=== PATIENT | male | born 1965 | race Hispanic/Latino ===

== ENCOUNTER 2016-12-06 10:57 | Emergency (ER) | payer SELFPAY ==
[2016-12-06] MEDS ORDERED: HYDROmorphone HCL 1 MG/ML SYR ONE (12:16)
[2016-12-06] MEDS ORDERED: ONDANSETRON HCL 4 MG/2 ML VIAL ONE (12:16)
[2016-12-06 12:20] LABS: A/G RATIO 1.2; ALBUMIN 3.8 g/dL (3.5-5.0); ALKALINE PHOSPHATASE 77 U/L (38-126); ALT 35 U/L (21-72); AST 14 U/L (17-59); BILIRUBIN, TOTAL 0.9 mg/dL (0.2-1.3); BLOOD UREA NITROGEN 25 mg/dL (9-20); CHLORIDE 108 mmol/L (98-107); CREATININE 1.4 mg/dL (0.7-1.3); EST GLOMERULAR FILTRATION RATE 56 mL/min; GLUCOSE 119 mg/dL (70-100); LIPASE 55 U/L (23-300); SODIUM 144 mmol/L (137-145)
[2016-12-06 12:50] LABS: HEMATOCRIT 38.7 % (42.0-54.0); HEMOGLOBIN 12.9 g/dL (14.0-18.0); MEAN CELL VOLUME 78.9 fL (80.0-100.0); MEAN CORPUS. HGB CONCENTRATION 33.3 g/dL (32.0-36.0); MEAN CORPUSCULAR HEMOGLOBIN 26.2 pg (29.0-35.0); MEAN PLATELET VOLUME 8.6 fL (7.4-10.4); PLATELET COUNT 237 X 10^3uL (130-440); RED CELL DISTRIBUTION WIDTH 17.5 % (11.5-14.5); WHITE BLOOD COUNT 8.4 X 10^3uL (3.9-10.7)
[2016-12-06 12:51] LABS: BAND% (Manual) 2 % (0.0-1.0); EOSINOPHIL % (Manual) 1 % (0.0-6.0); LYMPHOCYTE % (Manual) 10 % (20.0-40.0); MONOCYTE % (Manual) 8 % (2.0-10.0); NEUTROPHIL % (Manual) 79 % (54.0-75.0); PLATELET ESTIMATE ADEQUATE
[2016-12-06 12:52] LABS: OVALOCYTES PRESENT
--- NOTE | 2016-12-06 13:26 | CT REPORT ---
HISTORY: Left-sided pain around the feeding tube COMPARISON: None. TECHNIQUE: This examination was performed using automated exposure control, adjustment of mA or kV according to patient size, and/or use of iterative reconstruction technique. Multiple contiguous axial images were obtained from the lung bases through the pubic symphysis following administration of intravenous con trast. 100cc Isovue 300 contrast. FINDINGS: Left-sided gastrostomy tube is noted its position is unremarkable. There is no fatty stranding or flu id around its insertion site. The subcutaneous tissues appear normal. Moderate left and mild right basilar atelectasis is noted. There is significant cardiomegaly and a ti ny pericardial effusion. Abdomen/pelvis: The liver is normal in appearance without a mass or evidence of intrahepatic ductal d ilatation. The gallbladder is unremarkable, there is no cholelithiasis or pericholecystic fluid. Th e spleen is normal in appearance. There is no pancreatic mass or ductal dilatation. The adrenal glands are unremarkable. A tiny, 1 mm nonobstructing stone in the mid right kidney is evident. No hydronephrosis. A small exophytic hypode nsity, likely a cyst noted in the mid left kidney. The bowel is unremarkable given the lack of contrast. No obstruction. No wall thickening. No free fluid or free air. There has been a hernia repair in the umbilical region. Superior to the repair there is a tiny hernia containing only fat. There is no mesenteric edema or inflammatory process. Vascular structures of the abdomen and pelvis are unremarkable. No pathologic adenopathy is identified. The bladder appears normal. There is norm al alignment to the lower thoracic and lumbar spine. IMPRESSION: Gastrostomy tube is unremarkable in its position and appearance. No fatty stranding around its insert ion site. No fluid collection or evidence of infection. Tiny nonobstructing right kidney stone. Significant cardiomegaly with a tiny pericardial effusion. Moderate left and mild right basilar atelectasis Final Electronic Signature: This report was electronically signed by Chato Mendieta MD on 12/06/2016 1: 24 PM. deanna /
--- NOTE | 2016-12-06 14:34 | ER PHYSICIAN DOCUMENTATION ---
Physician Documentation [facility] Name:Sean Oliveira Age:51 yrs Sex:Male :1965 Arrival Date:12/06/2016 Time:10:57 Bed3 Private MD: Tres Sweeney Disposition: 12/06 15:00 Chart complete. tl1 Disposition: 12/06/16 14:02 Discharged to Home/Self Care. Impression: Abdominal Pain, Unspecified. - Condition is Good. - Discharge Instructions: Abdomen - ABDOMINAL PAIN, Unkown Cause, (Male). - Prescriptions for [place] 5- 325 mg Oral Tablet - take 1 tablet by ORAL route every 6 hours As needed; 20 tablet. Zofran 4 mg Oral Tablet - take 1-2 tablet by ORAL route every 4-6 hours As needed; 10 tablet. - Medical Reconciliation form form. - Follow up: Jass Nickerson MD; When: 4- 6 days; Reason: Recheck today's complaints, Continuance of care. - Problem is new. - Symptoms have improved. HPI: 11:18 This 51 yrs old Male presents to ER via Private Vehicle with complaints of tl1 Nausea, Abdominal Pain. 11:20 He has had mild, slowly progressive discomfort around his PEG tube for the last 10-14 tl1 days. Yesterday he had 3 episodes of diarrhea, and vomited once. Since about 8 AM, the pain around his PEG tube is worse and he has noticed some d/c, which he cannot accurately describe, that he thinks might be pus. He has had no f/c/s. No melena, hematochezia or hematemesis. No bleeding from the site or any redness or swelling.. Historical: - Allergies: Lisinopril; Lantus; - Home Meds: 1. Pulmicort 0.5 mg/2 mL inhalation nbsp 2 mL 2 times per day 2. Combivent Inhl 3. metoprolol tartrate 25 mg oral tab 2 times per day 4. Hytrin Oral 5. hydralazine 50 mg oral tab 1 tab TID 6. Coreg 6.25 mg oral tab 1 tab 2 times per day 7. isosorbide mononitrate 30 mg oral Tb24 1 tab once daily 8. Humalog 100 unit/mL subcutaneous soln 9. levothyroxine 150 mcg oral cap 1 cap once daily 10. Advair Diskus 250-50 mcg/dose inhalation dsdv 1 puff 2 times per day 11. Lasix 80 mg oral tab 1 tab once daily 12. oxygen @3 L/NC 13. Lantus 100 unit/mL subcutaneous soln 30 units QHS nightly 14. oxycodone 5 mg oral tab 1 tab as needed 15. aspirin 81 mg oral tab 1 tab once daily 16. atorvastatin 80 mg oral tab 1 tab at bedtime 17. 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 Hospitalized for 4 months, coma x 3 weeks. ; PEG tube; - Tetanus: < 10 years. - Ebola Screening: : Patient negative for fever greater than or equal to 101.5 degrees Fahrenheit, and additional compatible Ebola Virus Disease symptoms. Patient denies exposure to infectious person. Patient denies travel to an Ebola-affected area in the 21 days before illness onset. No symptoms or risks identified at this time. . - Immunization history: Unable to Obtain. - Social history: Smoking status: Patient states was never smoker of tobacco. Patient uses marijuana. ROS: 11:20 Abdomen/GI: Positive for abdominal pain, nausea, vomiting, diarrhea, abdominal cramps, tl1 Negative for abdominal distension, black/tarry stool, rectal bleeding, bowel incontinence. 11:20 All other systems are negative. Exam: 11:20 Head/Face: Normocephalic, atraumatic. tl1 Eyes: Pupils equal round and reactive to light, extra-ocular motions intact. Lids and lashes normal. Conjunctiva and sclera are non-icteric and not injected. Cornea within normal limits. Periorbital areas with no swelling, redness, or edema. 11:20 ENT: Nares patent. No nasal discharge, no septal abnormalities noted. Tympanic tl1 membranes are normal and external auditory canals are clear. Oropharynx with no redness, swelling, or masses, exudates, or evidence of obstruction, uvula midline. Mucous membranes moist. 11:20 Constitutional: The patient appears alert, awake, non-diaphoretic, non-toxic, well developed, well hydrated, well groomed, well nourished, obese, uncomfortable. 11:20 Cardiovascular: Rate: normal, Rhythm: regular, Heart sounds: normal. 11:20 Respiratory: Respirations: normal, Breath sounds: are normal. 11:20 Abdomen/GI: Inspection: abdomen appears normal, Bowel sounds: active, Palpation: soft, mild abdominal tenderness, in the left upper quadrant, rebound tenderness, is not appreciated, voluntary guarding, is not appreciated, involuntary guarding, is not appreciated, no appreciated organomegaly. 11:20 : CVA tenderness, is absent. 11:20 Skin: Exam negative for acute changes. Vital Signs: 11:05 BP 127 / 90; Pulse 78; Resp 20; Temp 98.5; Pulse Ox 98% on 4 lpm NC; Pain 8/10; rs 11:30 BP 172 / 100; Pulse 73; Resp 20; Pulse Ox 96% on 4 lpm NC; Pain 7/10; rs 12:00 BP 163 / 91; Pulse 74; Resp 20; Pulse Ox 97% on 4 lpm NC; Pain 7/10; rs 12:15 BP 173 / 108; Pulse 72; Resp 22; Pulse Ox 95% on 4 lpm NC; Pain 6/10; rs 12:30 BP 168 / 105; Pulse 71; Resp 20; Pulse Ox 97% on 4 lpm NC; Pain 5/10; rs 13:30 BP 143 / 89; Pulse 76; Resp 20; Pulse Ox 99% on 4 lpm NC; Pain 3/10; rs 14:00 BP 144 / 87; Pulse 69; Resp 20; Pulse Ox 99% on 4 lpm NC; Pain 3/10; rs MDM: 11:18 Patient medically screened. tl1 14:00 Differential diagnosis: gastritis, pancreatitis, appendicitis, diverticulitis, tl1 gastroenteritis, abscess, abdominal wall infection. Data reviewed: vital signs, nurses notes, old medical records, lab test result(s), EKG, radiologic studies, and as a result, I will discharge patient. Test interpretation: by ED physician or midlevel provider: not applicable. Counseling: I had a detailed discussion with the patient and/or guardian regarding: the historical points, exam findings, and any diagnostic results supporting the discharge/admit diagnosis, lab results, radiology results, the need for outpatient follow up, for a recheck, as scheduled 3 days from now on Friday, 12/09, with Dr Nickerson , to get your PEG tube removed. to return to the emergency department if symptoms worsen or persist or if there are any questions or concerns that arise at home. Medication response: The patient's symptoms have improved. Response to treatment: the patient's symptoms have mildly improved after treatment, and as a result, I will discharge patient. ED course: pain mostly resolved in the ED with very mild TTP on exam, around the PEG tube. No purulence, redness, induration.. 12/06 12:40 Order name: COMPREHENSIVE METABOLIC PANEL; Complete Time: 13:51 EDMS 12/06 12:40 Order name: LIPASE; Complete Time: 13:51 EDMS 12/06 12:51 Order name: CBC WITHOUT A DIFFERENTIAL; Complete Time: 13:51 EDMS 12/06 12:53 Order name: MANUAL DIFFERENTIAL; Complete Time: 13:51 EDMS 12/06 13:02 Order name: CAT SCAN; ABD/PEL W 23968; Complete Time: 13:51 EDMS 12/07 01:17 Interpretation: No apparent cause for his abdominal pain. tiny non obstructing kidney tl1 stone on the right. 12/06 12:19 Order name: Oxygen: wears oxygen at home at 3 L per min per nc.; Complete Time: 12:20 rs Dispensed Medications: 12:08 Drug: NS 0.9% 1000 ml; Volume: 1000 ml; Route: IV; Rate: bolus; Site: left antecubital; rs Delivery: [place] Tubing; 12:08 Drug: Zofran 4 mg; Route: IVP; Rate: 2 mg/min; Infused Over: 2 mins; Site: left rs antecubital; 12:53 Follow up: Response: No adverse reaction; Nausea is decreased rs 12:10 Drug: Dilaudid 1 mg; Route: IVP; Rate: 0.25 mg/min; Infused Over: 4 mins; Site: left rs antecubital; 12:52 Follow up: Response: No adverse reaction; Pain is decreased rs Signatures: Shavon Garcia RN RN rs Ivette, Tres, MD MD tl1
--- NOTE | 2016-12-06 14:34 | ER NURSING DOCUMENTATION ---
Nurse's Notes [facility] Name:Sean Oliveira Age:51 yrs Sex:Male :1965 Arrival Date:12/06/2016 Time:10:57 Bed3 Private MD: Diagnosis:Abdominal Pain, Unspecified Presentation: 12/06 11:10 Presenting complaint: Patient states: Abd pain in the area of his PEG. N/V/D x 1 day. rs No f/c. Transition of care: Home. 11:10 Acuity: ALBARO 2 rs 11:10 Method Of Arrival: Private Vehicle rs Triage Assessment: 11:08 General: Appears uncomfortable, Behavior is anxious, cooperative, pleasant. Pain: rs Complains of pain in abd LUQ in the area of his PEG. Pain does not radiate. Pain currently is 8 out of 10 on a pain scale. Quality of pain is described as sharp, stabbing, Pain began Started several weeks ago and is getting worse. Saw Dr Saunders who referred him to Dr Nickerson for removal of PEG which is scheduled for Friday December 09, 2016. States he cannot wait, that the pain has gotten too bad. Original surgery was in [place] last May. Neuro: No deficits noted. Level of Consciousness is awake, alert, Oriented to person, place, time, event. Cardiovascular: No deficits noted. Capillary refill < 3 seconds Pulses are 3+ in right radial artery. Respiratory: No deficits noted. Respiratory effort is even, unlabored, Respiratory pattern is regular, symmetrical, Breath sounds are clear Reports short of breath since moving to [place]. Wears oxygen at 3 L nc. GI: Abdomen is obese, Bowel sounds present X 4 quads. Abdomen is tender to palpation in left upper quadrant. GI: Reports diarrhea, nausea, vomiting. Derm: Skin is pink, warm & dry. Historical: - Allergies: Lisinopril; Lantus; - Home Meds: 1. Pulmicort 0.5 mg/2 mL inhalation nbsp 2 mL 2 times per day 2. Combivent Inhl 3. metoprolol tartrate 25 mg oral tab 2 times per day 4. Hytrin Oral 5. hydralazine 50 mg oral tab 1 tab TID 6. Coreg 6.25 mg oral tab 1 tab 2 times per day 7. isosorbide mononitrate 30 mg oral Tb24 1 tab once daily 8. Humalog 100 unit/mL subcutaneous soln 9. levothyroxine 150 mcg oral cap 1 cap once daily 10. Advair Diskus 250-50 mcg/dose inhalation dsdv 1 puff 2 times per day 11. Lasix 80 mg oral tab 1 tab once daily 12. oxygen @3 L/NC 13. Lantus 100 unit/mL subcutaneous soln 30 units QHS nightly 14. oxycodone 5 mg oral tab 1 tab as needed 15. aspirin 81 mg oral tab 1 tab once daily 16. atorvastatin 80 mg oral tab 1 tab at bedtime 17. 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 Hospitalized for 4 months, coma x 3 weeks. ; PEG tube; - Tetanus: < 10 years. - Ebola Screening: : Patient negative for fever greater than or equal to 101.5 degrees Fahrenheit, and additional compatible Ebola Virus Disease symptoms. Patient denies exposure to infectious person. Patient denies travel to an Ebola-affected area in the 21 days before illness onset. No symptoms or risks identified at this time. . - Immunization history: Unable to Obtain. - Social history: Smoking status: Patient states was never smoker of tobacco. Patient uses marijuana. Screenin:42 Infectious Disease Risk None. Abuse screen: Denies threats or abuse. Nutritional rs screening: No deficits noted. Assessment: 11:10 See Triage Assessment done by same RN. rs Vital Signs: 11:05 BP 127 / 90; Pulse 78; Resp 20; Temp 98.5; Pulse Ox 98% on 4 lpm NC; Pain 8/10; rs 11:30 BP 172 / 100; Pulse 73; Resp 20; Pulse Ox 96% on 4 lpm NC; Pain 7/10; rs 12:00 BP 163 / 91; Pulse 74; Resp 20; Pulse Ox 97% on 4 lpm NC; Pain 7/10; rs 12:15 BP 173 / 108; Pulse 72; Resp 22; Pulse Ox 95% on 4 lpm NC; Pain 6/10; rs 12:30 BP 168 / 105; Pulse 71; Resp 20; Pulse Ox 97% on 4 lpm NC; Pain 5/10; rs 13:30 BP 143 / 89; Pulse 76; Resp 20; Pulse Ox 99% on 4 lpm NC; Pain 3/10; rs 14:00 BP 144 / 87; Pulse 69; Resp 20; Pulse Ox 99% on 4 lpm NC; Pain 3/10; rs ED Course: 10:58 Patient arrived in ED. lm3 11:10 Shavon Garcia, RN is Primary Nurse. rs 11:10 Notified ED Physician of patient's arrival and chief complaint. Dr. Steele notified. Arm rs band placed on Bed in low position Call Light in Reach Gowned HOB Elevated Side rails up x1. 11:11 Triage completed. rs 11:15 Door closed. Noise minimized. Lights dimmed. Verbal reassurance given. Diet: Patient is rs NPO. 11:18 Tres Steele MD is Attending Physician. tl1 11:30 Inserted saline lock: 20 gauge in right antecubital area and blood collected. rs 12:43 Pulse Ox - RN Monitoring Only NIBP On - RN Monitoring Only. rs 12:44 Resting quietly. rs 12:[address] hz 13:02 CAT SCAN; ABD/PEL W 22653 In Process Unspecified. EDMS 13:08 Patient moved back from [address]. shan 13:15 CAT SCAN; ABD/PEL W [id number] Sent. shan 14:00 Jass Nickerson MD is Referral Physician. tl1 14:15 Valuables Remains with patient. rs 14:18 Discontinued intact, bleeding controlled, pressure dressing applied, No rs redness/swelling at site. Administered Medications: 12:08 Drug: NS 0.9% 1000 ml; Volume: 1000 ml; Route: IV; Rate: bolus; Site: left antecubital; rs Delivery: [place] Tubing; 12:08 Drug: Zofran 4 mg; Route: IVP; Rate: 2 mg/min; Infused Over: 2 mins; Site: left rs antecubital; 12:53 Follow up: Response: No adverse reaction; Nausea is decreased rs 12:10 Drug: Dilaudid 1 mg; Route: IVP; Rate: 0.25 mg/min; Infused Over: 4 mins; Site: left rs antecubital; 12:52 Follow up: Response: No adverse reaction; Pain is decreased rs Outcome: 14:02 Discharge ordered by . tl1 14:30 Discharged to home ambulatory, with family. rs 14:30 Condition: improved 14:30 Discharge instructions given to patient, Instructed on discharge instructions, follow up and referral plans. Demonstrated understanding of instructions. 14:30 IV D/Wilfredo 14:33 Patient left the ED. rs Signatures: Dispatcher [employer] Shavon Lovett RN RN Barbie Donohue Tom, MD MD tl1 Nereyda Pineda Lisa lm3
== END 2016-12-06 14:34 | disposition home or self-care (01) ==
LOC: ER 10:57
DX: R10.12 Left upper quadrant pain (principal); K94.29 Other complications of gastrostomy; R11.2 Nausea with vomiting, unspecified; R19.7 Diarrhea, unspecified; Z93.1 Gastrostomy status; N20.0 Calculus of kidney; Z85.850 Personal history of malignant neoplasm of thyroid; Z85.9 Personal history of malignant neoplasm, unspecified; J44.9 Chronic obstructive pulmonary disease, unspecified; E10.9 Type 1 diabetes mellitus without complications; E66.01 Morbid (severe) obesity due to excess calories; Z79.899 Other long term (current) drug therapy; Z79.82 Long term (current) use of aspirin; Z99.81 Dependence on supplemental oxygen
CPT/HCPCS: 74177; 80053; 83690; 85007; 85027; 96374; 96375; 99284; J1170; J2405

== ENCOUNTER 2017-01-25 02:37 | Emergency (ER) | payer MEDICARE ==
[2017-01-25] MEDS ORDERED: NITROGLYCERIN 0.4 MG TAB.SUBL SUBLINGUAL ONE (02:56)
[2017-01-25] MEDS ORDERED: NITROGLYCERIN OINT 1 GM PACKET ONE (02:57)
[2017-01-25] MEDS ORDERED: MORPHINE SULFATE 2 MG/ML SYR ONE ×2 (02:57→03:12)
[2017-01-25 02:58] LABS: BASOPHIL# 0.1 X 10^3uL (0.0-0.1); BASOPHILS 0.7 % (0.0-2.0); EOSINOPHILS 2.2 % (0.0-6.0); EOSINOPHILS# 0.2 X 10^3uL (0.0-0.4); HEMATOCRIT 42.1 % (42.0-54.0); HEMOGLOBIN 13.9 g/dL (14.0-18.0); LYMPHOCYTES 14.4 % (20.0-40.0); LYMPHOCYTES# 1.2 X 10^3uL (0.8-3.8); MEAN CELL VOLUME 81.1 fL (80.0-100.0); MEAN CORPUS. HGB CONCENTRATION 33.1 g/dL (32.0-36.0); MEAN CORPUSCULAR HEMOGLOBIN 26.8 pg (29.0-35.0); MEAN PLATELET VOLUME 9.3 fL (7.4-10.4); MONOCYTES 5.2 % (2.0-10.0); MONOCYTES# 0.4 X 10^3uL (0.2-1.0); NEUTROPHILS# 6.5 X 10^3uL (2.6-6.7); RED BLOOD COUNT 5.19 X 10^6uL (4.20-6.10); RED CELL DISTRIBUTION WIDTH 14.8 % (11.5-14.5); WHITE BLOOD COUNT 8.4 X 10^3uL (3.9-10.7)
[2017-01-25 03:04] LABS: CALCIUM 9.8 mg/dL (8.4-10.2); MAGNESIUM 2.3 mg/dL (1.6-2.3); POTASSIUM 3.6 mmol/L (3.5-5.1)
[2017-01-25 03:08] LABS: NEUTROPHILS 77.5 % (54.0-75.0)
--- NOTE | 2017-01-25 03:16 | RADIOLOGY REPORT ---
HISTORY: Chest pain COMPARISON: None. FINDINGS: 1 view of the chest obtained. Sternotomy wires and mediastinal surgical clips are noted. Cardiac silh ouette is mildly enlarged. There is pulmonary vascular congestion and bilateral interstitial edema. T here is no consolidation, pleural effusion, or pneumothorax. IMPRESSION: Mildly enlarged cardiac silhouette with pulmonary vascular congestion and bilateral pulmonary interst itial edema. Final Electronic Signature: This report was electronically signed by Aravind Garcia MD on 01/25/2017 3 :13 AM. tparadis /
[2017-01-25 03:19] LABS: TROPONIN I 0.081 ng/mL (0.00-0.034)
[2017-01-25] MEDS ORDERED: HEPARIN SOD PORCINE 5,000 UNITS/ML VIAL ONE (03:39)
[2017-01-25] MEDS ORDERED: D5W IV ONE (04:05)
[2017-01-25] MEDS ORDERED: HEPARIN SOD PORCINE IV ONE (04:05)
[2017-01-25] MEDS ORDERED: CLOPIDOGREL BISULFATE 75 MG TABLET PO ONE (04:07)
--- NOTE | 2017-01-25 04:46 | ER PHYSICIAN DOCUMENTATION ---
Physician Documentation [facility] Name:Sean Oliveira Age:51 yrs Sex:Male :1965 Arrival Date:01/25/2017 Time:02:37 BedTrauma-B Private MD:Physician, No ED Jass Amador Disposition: 01/25 03:26 Critical Care: not applicable. [place] Disposition: 01/25/17 03:27 Transfer ordered to [facility]. Diagnosis are Unstable Angina, Hypotension. - Reason for transfer: Specialty. - Accepting physician is Dr. Marcelino. - Condition is Serious. - Problem is new. - Symptoms are unchanged. COBRA Form completed? Yes Transfer - Mode of Transportation Ambulance HPI: 02:45 This 51 yrs old Male presents to ER with complaints of Chest Pain, Numbness Of sc Arm. 02:45 The patient or guardian reports chest pain that is located primarily in the anterior sc chest wall. Onset: at 01:30. The pain radiates to the left arm. There has been no movement of pain. Associated signs and symptoms: The patient has no apparent associated signs or symptoms. The chest pain is described as a pressure, sharp. Duration: The patient or guardian reports a single episode, that is still ongoing. Modifying factors: The symptoms are alleviated by nothing. Severity of pain: At its worst the pain was moderate in the emergency department the pain is unchanged. Historical: - Allergies: Lisinopril; - Home Meds: 1. carvedilol oral 2. Hydralazine Oral 3. Spironolactone Oral 4. Isosorbide Dinitrate Oral 5. Furosemide Oral 6. terazosin oral 7. Metoprolol Tartrate Oral 8. atorvastatin oral - PMHx: Hypertension; HIGH CHOLESTEROL; Diabetes - NIDDM; CHF; CAD; MYOCARDIAL INFARCTION; Diabetes - IDDM; - Tetanus: < 10 years. - Ebola Screening: : Patient denies exposure to infectious person. Patient denies travel to an Ebola-affected area in the 21 days before illness onset. . - Immunization history: Flu Vaccine < 1 year. - Social history: Smoking status: Patient states was never smoker of tobacco. Patient uses marijuana. - Code Status:: Full code. ROS: 02:46 Constitutional: Negative for fever, chills, and weight loss. sc Eyes: Negative for injury, pain, redness, and discharge. ENT: Negative for injury, pain, and discharge. Neck: Negative for injury, pain, and swelling. Respiratory: Negative for shortness of breath, cough, wheezing, and pleuritic chest pain. Abdomen/GI: Negative for abdominal pain, nausea, vomiting, diarrhea, and constipation. Back: Negative for injury and pain. MS/Extremity: Negative for injury and deformity. Skin: Negative for injury, rash, and discoloration. 02:46 Neuro: Negative for headache, weakness, numbness, tingling, and seizure. sc 02:46 Cardiovascular: Positive for chest pain, Negative for orthopnea, palpitations, paroxysmal nocturnal dyspnea. Exam: Head/Face: Normocephalic, atraumatic. Eyes: Pupils equal round and reactive to light, extra-ocular motions intact. Lids and lashes normal. Conjunctiva and sclera are non-icteric and not injected. Cornea within normal limits. Periorbital areas with no swelling, redness, or edema. ENT: Nares patent. No nasal discharge, no septal abnormalities noted. Tympanic membranes are normal and external auditory canals are clear. Oropharynx with no redness, swelling, or masses, exudates, or evidence of obstruction, uvula midline. Mucous membranes moist. Neck: Trachea midline, no thyromegaly or masses palpated, and no cervical lymphadenopathy. Supple, full range of motion without nuchal rigidity, or vertebral point tenderness. No meningismus. Chest/axilla: Normal chest wall appearance and motion. Nontender with no deformity. No lesions are appreciated. Cardiovascular: Regular rate and rhythm with a normal S1 and S2. No gallops, murmurs, or rubs. Normal PMI, no JVD. No pulse deficits. Respiratory: Lungs have equal breath sounds bilaterally, clear to auscultation and percussion. No rales, rhonchi or wheezes noted. No increased work of breathing, no retractions or nasal flaring. Abdomen/GI: Soft, non-tender, with normal bowel sounds. No distension or tympany. No guarding or rebound. No evidence of tenderness throughout. 02:46 Back: No spinal tenderness. No costovertebral tenderness. Full range of motion. sc 02:46 Constitutional: The patient appears alert, awake, restless, uncomfortable. 02:46 Cardiovascular: Rate: normal, Rhythm: regular. 02:46 Respiratory: the patient does not display signs of respiratory distress, Respirations: tachypnea, Breath sounds: decreased breath sounds, that are severe, are heard in the left upper lobe and left lower lobe. Vital Signs: 03:10 BP 92 / 56; Pulse 76; Resp 22; Temp 97.5(TE); Pulse Ox 95% on 2 lpm NC; Weight 111.13 lb kg; Height 5 ft. 8 in. (172.72 cm); Pain 6/10; 03:36 BP 78 / 47; Pulse 71; Pulse Ox 92% on 2 lpm NC; lb 04:42 BP 84 / 49; Pulse 71; Resp 18; Pulse Ox 96% on 2 lpm NC; Pain 4/10; lb 03:10 Body Mass Index 37.25 (111.13 kg, 172.72 cm) lb MDM: 02:40 Patient medically screened. sc 02:47 Patient took aspirin per EMS prior to arrival. sc 03:21 Patient did not receive fibrinolytic due to not applicable after discussing with [place] digital strategist senior manager Dr. Marcelino. Data reviewed: vital signs, nurses notes, lab test result(s), EKG, radiologic studies, plain films, and as a result, I will *Transfer Patient. Data interpreted: occupational nurse: rate is 65 beats/min, rhythm is normal sinus rhythm, with LBBB. ECG:. Medication response: The patient's symptoms worsen despite medication administration, Nitro x 2 did not change patient's pain, morphine did not change patient's pain. Response to treatment: the patient's symptoms have worsened after treatment, more severe hypotension. Physician consultation: Dr. Marcelino was called at 03:26, was contacted at 03:26, regarding patient's condition. 03:50 ED course: Helicopter refused due to weather 30 min after request. Ground ambulance sc arrangements made. Heparin drip per digital strategist senior manager request.. 01/25 03:09 Order name: DDIMER; Complete Time: 03: EDMS 01/25 03:10 Order name: BASIC METABOLIC PANEL; Complete Time: 03: EDMS 01/25 03:10 Order name: MAGNESIUM; Complete Time: : EDMS 01/25 03:22 Order name: BNP,NT-PRO; Complete Time: : EDMS 01/25 03:22 Order name: TROPONIN I; Complete Time: 03:27 EDFL 01/25 03:23 Order name: CBC AUTO DIF, MDIF/RMOR IF IND; Complete Time: 03:27 EDFL 01/25 04:20 Order name: PROTIME/INR EDFL 01/25 03:17 Order name: CHEST; SING[place] [id number]; Complete Time: 03:19 EDFL 01/25 03:41 Interpretation: Normal Except. [place] 01/25 02:42 Order name: 12-lead EKG; Complete Time: 02:51 ky 01/25 02:42 Order name: Iv Saline Lock; Complete Time: 02:51 ky 01/25 02:42 Order name: Place Patient On Monitor; Complete Time: 02:51 ky 01/25 02:42 Order name: Pulse Ox Continuous; Complete Time: :51 ky EC:21 Rate is 62 beats/min. Rhythm is regular, Normal Sinus Rhythm with Left bundle branch sc block. NJ interval is prolonged. QRS interval is prolonged. QT interval is normal. No Q waves. No ST changes noted. Clinical impression: Abnormal EKG without significant change. Interpreted by me. Reviewed by me. Dispensed Medications: 02:54 Drug: morphine 2 mg; Route: IVP; Site: left antecubital; 03:17 Follow up: Response: Pain is unchanged, physician notified lb 02:54 Drug: Nitroglycerin Ointment 2 % 1 inches; Route: Transdermal; Site: anterior chest fc wall; 03:57 Follow up: Response: Pain is decreased lb 03:05 Drug: morphine 2 mg; Route: IVP; Site: left antecubital; 03:18 Follow up: Response: Pain is decreased lb 03:29 Drug: heparin 4000 units; {Note: DR. EPSTEIN REQUESTED 4000 UNITS INITIALLY, THEN STATED fc THAT WE SHOULD WAIT FOR THE FLIGHT CREW TO INITIATE THE CONTINUOUS INFUSION SO THAT IT WOULD BE ON THEIR IV SET / PUMP..} Route: IVP; Site: left antecubital; 03:32 Follow up: Response: No adverse reaction lb 03:57 Drug: Plavix 300 mg; Route: PO; lb 03:58 Follow up: Response: No adverse reaction lb Signatures: Jass Epstein MD MD ky ayan melton Reyna Maldonado lb
--- NOTE | 2017-01-25 04:46 | ER NURSING DOCUMENTATION ---
Nurse's Notes [facility] Name:Sean Oliveira Age:51 yrs Sex:Male :1965 Arrival Date:01/25/2017 Time:02:37 BedTrauma-B Private MD:Physician, No Diagnosis:Unstable Angina;Hypotension Presentation: 01/25 02:51 Notified ED Physician of Dr. Epstein notified. lb 02:51 Acuity: ALBARO 2 lb 02:53 Presenting complaint: EMS states: left upper chest pain 1.5 hrs prior to arrival with lb left arm numbness. given nitro and aspirin with no relief. hx prior mi. Transition of care: Home. Asprin Given by EMS 324 mg po. 02:53 Method Of Arrival: EMS: 410 lb 03:35 AIR CAT ACTIVATION no. lb Triage Assessment: 03:07 General: Appears distressed, uncomfortable, Behavior is anxious. Pain: Complains of lb pain in anterior aspect of left upper chest Pain does not radiate. Pain currently is 6 out of 10 on a pain scale. Quality of pain is described as pressure. Cardiovascular: Rhythm is sinus rhythm with bundle branch block. Respiratory: Airway is patent Trachea midline Respiratory effort is even, diminished with expiratory grunting. Historical: - Allergies: Lisinopril; - Home Meds: 1. carvedilol oral 2. Hydralazine Oral 3. Spironolactone Oral 4. Isosorbide Dinitrate Oral 5. Furosemide Oral 6. terazosin oral 7. Metoprolol Tartrate Oral 8. atorvastatin oral - PMHx: Hypertension; HIGH CHOLESTEROL; Diabetes - NIDDM; CHF; CAD; MYOCARDIAL INFARCTION; Diabetes - IDDM; - Tetanus: < 10 years. - Ebola Screening: : Patient denies exposure to infectious person. Patient denies travel to an Ebola-affected area in the 21 days before illness onset. . - Immunization history: Flu Vaccine < 1 year. - Social history: Smoking status: Patient states was never smoker of tobacco. Patient uses marijuana. - Code Status:: Full code. Screenin:12 Infectious Disease Risk None. Abuse screen: Denies threats or abuse. Denies injuries lb from another. Nutritional screening: No deficits noted. Assessment: 03:11 Pain: Complains of pain in anterior aspect of left upper chest Pain does not radiate. lb Pain currently is 6 out of 10 on a pain scale. Pain began 2 hours ago. 03:12 Pain: Also complains of left arm numbness. lb Vital Signs: 03:10 BP 92 / 56; Pulse 76; Resp 22; Temp 97.5(TE); Pulse Ox 95% on 2 lpm NC; Weight 111.13 lb kg; Height 5 ft. 8 in. (172.72 cm); Pain 6/10; 03:36 BP 78 / 47; Pulse 71; Pulse Ox 92% on 2 lpm NC; lb 04:42 BP 84 / 49; Pulse 71; Resp 18; Pulse Ox 96% on 2 lpm NC; Pain 4/10; lb 03:10 Body Mass Index 37.25 (111.13 kg, 172.72 cm) lb ED Course: 02:38 Patient arrived in ED. ma1 02:38 PhysicianMimi is Private Physician. ma1 02:40 Jass Epstein MD is Attending Physician. sc 02:50 Oxygen Oxygen administration via nasal cannula @ 2L/min. lb 02:51 Reyna Maldonado is Primary Nurse. lb 02:51 Triage completed. lb 02:52 Port Xray Completed. mr 02:54 Inserted peripheral IV: 20 gauge in right forearm. fc 03:12 court recording monitor on. Pulse ox on. NIBP on. lb 04:44 Valuables Remains with patient. lb Administered Medications: 02:54 Drug: morphine 2 mg; Route: IVP; Site: left antecubital; fc 03:17 Follow up: Response: Pain is unchanged, physician notified lb 02:54 Drug: Nitroglycerin Ointment 2 % 1 inches; Route: Transdermal; Site: anterior chest fc wall; 03:57 Follow up: Response: Pain is decreased lb 03:05 Drug: morphine 2 mg; Route: IVP; Site: left antecubital; fc 03:18 Follow up: Response: Pain is decreased lb 03:29 Drug: heparin 4000 units; {Note: DR. EPSTEIN REQUESTED 4000 UNITS INITIALLY, THEN STATED fc THAT WE SHOULD WAIT FOR THE FLIGHT CREW TO INITIATE THE CONTINUOUS INFUSION SO THAT IT WOULD BE ON THEIR IV SET / PUMP..} Route: IVP; Site: left antecubital; 03:32 Follow up: Response: No adverse reaction lb 03:57 Drug: Plavix 300 mg; Route: PO; lb 03:58 Follow up: Response: No adverse reaction lb Outcome: 03:27 ER care complete, transfer ordered by MD. nunn 04:42 Transferred: Patient will be transferred to: [facility]. Facility lb Acceptance Time: January 25, 2017 at 03:30 Patient's face sheet was faxed to accepting facility. Face Sheet included patient's name, address, age, gender, contact information and insurance information. Patient will be transported by: [facility] ground. Report called to: Fabián KUMAR at [facility] Nurse and Physician Charting and Notes were sent to Accepting Facility. All tests and/or procedures with results, if applicable, were sent to accepting facility. 04:42 Condition: improved 04:42 Discharge Assessment: Patient awake, alert and oriented x 3. No cognitive and/or functional deficits noted. Patient verbalized understanding of disposition instructions. 04:42 Instructed on need for transfer 04:45 Patient left the ED. lb Signatures: Jass Epstein MD MD sc collins, Reyna Connolly Melissa ma1 Irwin Guevara mr
== END 2017-01-25 04:46 | disposition short-term general hospital (02) ==
LOC: ER 02:37
DX: I20.0 Unstable angina (principal); I95.9 Hypotension, unspecified; R09.89 Other specified symptoms and signs involving the circulatory and respiratory systems; I50.9 Heart failure, unspecified; I25.10 Atherosclerotic heart disease of native coronary artery without angina pectoris; E11.9 Type 2 diabetes mellitus without complications; I25.2 Old myocardial infarction; Z79.899 Other long term (current) drug therapy; Z99.89 Dependence on other enabling machines and devices; Z99.81 Dependence on supplemental oxygen; Z74.3 Need for continuous supervision
CPT/HCPCS: 71010; 80048; 83735; 83880; 84484; 85025; 85379; 85610; 93005; 96374; 96375; 99285; A0425; A0427; J1644; J2270